=== PATIENT | female | born 1980 | race Caucasian/White ===

== ENCOUNTER 2016-09-07 15:47 | Emergency (ER) ==
[2016-09-07 16:07] VITALS: BP 106/65
== END 2016-09-07 16:30 | disposition left against medical advice (07) ==
LOC: P.ED 15:47
DX: N91.2 Amenorrhea, unspecified (principal)

== ENCOUNTER 2016-09-10 21:01 | Emergency (ER) ==
[2016-09-10 21:32] VITALS: BP 117/64
[2016-09-10] MEDS ORDERED: TYLENOL WITH CODEINE #3 PO ONE (22:09)
--- NOTE | 2016-09-10 22:09 | PROVIDER DOCUMENTATION ---
[facility]-ON LICENSE OF [facility] General <YuriyMark - Last Filed: 09/10/16 22:07> - General Source: patient - History of Present Illness-[facility] Location: reports: throat Quality of Pain: reports: aching Severity: reports: moderate Onset/Duration: reports: 1 week ago Timing: reports: still present Prearrival Treatment: Initiated no prearrival treatment Associated Symptoms: reports: sore throat. denies: cough, fever Similar Symptoms Previously?: Yes (hx of strep) Recently seen or treated by another doctor?: No <Enrrique Lopez - Last Filed: 09/10/16 22:13> - General Chief Complaint: Sore Throat Stated Complaint: SORE THROAT Time Seen by Provider: 09/10/16 22:11 Allergies/Adverse Reactions: Patient Allergies Allergy/AdvReac Type Severity Reaction Status Date / Time No Known Allergies Allergy Verified 09/10/16 21:28 Home Medications: Home Medication List Medication Instructions Recorded Confirmed Last Taken Type Hum Insulin NPH/Reg Insulin Hm 45 units BID 04/11/16 09/10/16 09/10/16 History [Novolin 70-30 100 Unit/ml Vial] Guaifenesin/Codeine [Robitussin-AC] 10 ml PO Q4H PRN PRN #6 oz 09/10/16 Unknown Rx - History of Present Illness-formerly [facility] Nature of Presenting Problem: 36 y/o F complains of a dry sore throat. Pt denies fever and cough. (Enrrique Lopez) Review of Systems - Adult - REVIEW OF SYSTEMS - ADULT Constitutional: denies: chills, fever Eyes: reports: no symptoms reported Ears, Nose, Mouth & Throat: reports: throat pain. denies: sinus problem, mouth/ dental pain, throat swelling Cardiovascular: reports: no symptoms reported Respiratory: denies: cough, shortness of breath, wheezing Gastrointestinal: reports: no symptoms reported Genitourinary: reports: no symptoms reported Musculoskeletal: reports: no symptoms reported Integumentary: reports: no symptoms reported Neurological: reports: no symptoms reported Psychiatric: reports: no symptoms reported Endocrine: reports: no symptoms reported Hematologic/Lymphatic: reports: no symptoms reported Allergic/Immunologic: reports: no symptoms reported All Other Systems: Reviewed and Negative <Enrrique Lopez - Last Filed: 09/10/16 22:13> Past History - Adult - PAST MEDICAL HISTORY-ADULT Major Childhood Illnesses: reports: denies history Cardiovascular: reports: denies history Respiratory: reports: denies history Gastrointestinal: reports: GERD Genitourinary: reports: denies history Musculoskeletal: reports: denies history Neurological: reports: Seizures/Epilepsy Endocrine/Immune: reports: Diabetes - PRIOR SURGERIES/PROCEDURES Surgical/Procedure History: reports: (x3) - IMMUNIZATION STATUS Childhood Immunizations: See Nurse Assessment Flu Vaccine: See Nurse Assessment - FAMILY HISTORY Family History: CAD over 55 yo <Mark Yan - Last Filed: 09/10/16 22:07> - PAST MEDICAL HISTORY-ADULT Review of Records: reports: Old Records Reviewed, Nursing Assessment Review, Medications Reviewed - SOCIAL HISTORY Smoking: cigarettes, less than 1 pack/day Living Situation: family <Enrrique Lopez - Last Filed: 09/10/16 22:13> Physical Exam- EENT - Physical Exam EENT Initial Vital Signs Reviewed: Yes General Appearance: appears well, alert, no apparent distress Eye Exam: bilateral eye: normal inspection, PERRL Ear Exam: bilateral ear: auricle normal, canal normal, TM normal Nasal Exam: normal inspection. negative: active bleeding Throat Exam: normal mouth inspection, pharynx normal Neck: non-tender, full range of motion, supple, normal inspection Respiratory: lungs clear, normal breath sounds Cardiovascular: normal peripheral pulses, regular rate, rhythm Abdominal Exam: normal bowel sounds, non tender, soft Back Exam: normal inspection, no CVA tenderness, no vertebral tenderness Extremity: normal range of motion, non-tender, normal gait, normal inspection Integumentary: normal color, normal turgor, warm/dry Neurologic: grossly normal, no motor/sensory deficits Psych/Mental Status: normal mood/affect, normal thought content, normal thought process, oriented x 3 <Enrrique Lopez - Last Filed: 09/10/16 22:13> Progress <Mark Yan - Last Filed: 09/10/16 22:07> <Enrrique Lopez - Last Filed: 09/10/16 22:13> - PLAN OF CARE/RESULTS Progress/Plan/Lab Results: Orders Category Date Time Status strep [DIRECT STREP PL] Stat Lab 09/10/16 21:35 Completed Acetaminophen with Codeine [Tylenol with Codeine #3] Med 09/10/16 22:09 Discontinued 1 each PO NOW ONE Vital Signs Temp Pulse Resp BP Pulse Ox 09/10/16 21:28 99.5 F 88 18 117/64 99 No Known Allergies Allergy (Verified 09/10/16 21:28) Hum Insulin NPH/Reg Insulin Hm [Novolin 70-30 100 Unit/ml Vial] 45 units BID Guaifenesin/Codeine [Robitussin-AC] 10 ml PO Q4H PRN PRN #6 oz 09/10/16 Laboratory 09/10/16 21:35 Group A Strep Rapid NEGATIVE (Enrrique Lopez) Departure - Departure Time of Disposition Order: 22:07 Certified Medical Emergency: Emergent <Mark Yan - Last Filed: 09/10/16 22:07> <Enrrique Lopez - Last Filed: 09/10/16 22:13> - Departure DIAGNOSIS: URI (upper respiratory infection) Qualifiers: URI type: unspecified viral URI Qualified Code(s): J06.9 - Acute upper respiratory infection, unspecified Disposition: HOME 01 Condition: Stable Additional Instructions: ED Follow Up Instructions: You have been treated by a care provider in the Emergency Department. These instructions are being provided to you so you can have an understanding of how to care for yourself upon discharge. Upon discharge from the Emergency Department, you are responsible for making arrangements for follow-up care by a physician of your choice. Take all prescribed medications as directed. Return to the Emergency Department immediately for any new or worsening symptoms. You may call the Physician Referral phone number at [phone] to obtain a list of Physicians who are taking new patients. Prescriptions: Guaifenesin/Codeine [Robitussin-AC] 10 ml PO Q4H PRN PRN #6 oz PRN Reason: Cough Referrals: Luis Alberto Cabral [Primary Care Provider] - Attestation - Scribe Verification/Attestation Scribe:: Enrrique Lopez Acting as Scribe for:: Mark Yan Scribe documention review:: This chart was documented by a scribe and accurately reflects the service the provider performed and the decisions made by the provider. <Enrrique Lopez - Last Filed: 09/10/16 22:13> Physician Attestation
== END 2016-09-10 22:24 | disposition home or self-care (01) ==
LOC: P.ED 21:01
DX: J06.9 Acute upper respiratory infection, unspecified (principal); J02.9 Acute pharyngitis, unspecified; E11.9 Type 2 diabetes mellitus without complications; R56.9 Unspecified convulsions; F17.210 Nicotine dependence, cigarettes, uncomplicated; Z82.49 Family history of ischemic heart disease and other diseases of the circulatory system; Z79.4 Long term (current) use of insulin
CPT/HCPCS: 87081; 87430; 99283

== ENCOUNTER 2016-12-17 17:00 | Inpatient (IN) ==
[2016-12-17] MEDS ORDERED: NS 1,000 ML IV ONE ×2 (18:20→19:36)
[2016-12-17] MEDS ORDERED: HUMALOG IV ONE (18:21)
[2016-12-17 18:28] LABS: MANUAL DIFF NEEDED? NO
[2016-12-17] MEDS ORDERED: NS 1,000 ML ONE (18:32)
[2016-12-17 18:41] LABS: BASO% 0.5 % (0.0-0.8); EOS# 0.15 X1000 (0.0-0.7); EOS% 1.9 % (0.0-10.0); HEMATOCRIT 41.6 % (37.0-47.0); IMM GRAN# 0.02 X1000 (0.0-0.04); IMM GRAN% 0.2 % (0.0-0.5); LYMPH# 2.24 X1000 (1.2-3.4); LYMPH% 27.7 % (20.5-51.1); MCH 31.5 PG (27-31); MCHC 33.7 g/dL (33-37); MCV 93.7 FL (81-99); MONO# 0.51 X1000 (0.11-0.59); MONO% 6.3 % (1.7-9.3); MPV 12.5 FL (7.4-10.4); NEUT% 63.4 % (42.2-75.2); PLT 258 X1000 (130-400); RBC 4.44 XMIL (4.2-5.4)
[2016-12-17] MEDS ORDERED: HUMALOG (PARKWAY) ONE (18:43)
[2016-12-17 19:10] LABS: AGAP 12; ALBUMIN 3.8 g/dL (3.5-5.0); ALKALINE PHOSPHATASE 133 U/L (32-104); BUN 10 mg/dL (8-22); CALCIUM 8.6 mg/dL (8.8-10.2); CHLORIDE 81 mmol/L (98-107); COSMO 288; GOT 11 U/L (10-30); GPT 11 U/L (10-36); POTASSIUM 4.6 mmol/L (3.5-5.1); TCO2 26 mmol/L (25-35); TOTAL PROTEIN 7.1 g/dL (6.3-8.3)
[2016-12-17 19:11] LABS: SODIUM 120 mmol/L (136-145)
[2016-12-17 19:18] LABS: ACETONE SERUM SMALL (NEGATIVE)
[2016-12-17] MEDS ORDERED: HUMULIN R (PARKWAY) SUBQ ONE (19:45)
--- NOTE | 2016-12-17 20:10 | PROVIDER DOCUMENTATION ---
This chart was entered by Negrita Lazaro Scribe, acting as scribe for Mark Yan MD. HPI-General Adult - General Chief Complaint: High Blood Sugar Stated Complaint: BLOOD SUGAR PROBLEMS Time Seen by Provider: 12/17/16 18:21 Source: patient Allergies/Adverse Reactions: Patient Allergies Allergy/AdvReac Type Severity Reaction Status Date / Time No Known Allergies Allergy Verified 12/17/16 17:19 Home Medications: Home Medication List Medication Instructions Recorded Confirmed Last Taken Type Insulin Regular, Human [Novolin R] 10 unit SQ DIRECTED 12/15/16 12/15/16 Unknown History Insulin Regular, Human [Novolin R] 45 unit SQ QAM 12/15/16 12/15/16 12/15/16 08: 00 History - History of Present Illness -Gen Adult Nature of Presenting Problems: 36 Y/O F presents to ED with High Blood Sugar. Pt states that she took her meds 40 units of Novalin R this morning and her sugar was 500, Pt states consistent High sugar. Has had diabetes for 20+ years and has hx of several episodes of DKA. Pt states she has a fruity vinegar taste in her mouth believes she's in DKA and states that her sugar was 700 but her monitor stops reading at 700. Location of Pain/Injury: reports: none Pain Radiation: reports: no radiation Quality of Pain: reports: none Severity: reports: moderate Onset/Duration: reports: this morning Timing: reports: still present Associated Symptoms: reports: denies symptoms Similar Symptoms Previously?: Yes Recently seen or treated by another doctor?: No - Diabetes Related Context Context: reports: high blood sugar, prior DKA hospitalization Review of Systems - Adult - REVIEW OF SYSTEMS - ADULT Constitutional: reports: weight gain. denies: chills, fever Eyes: reports: no symptoms reported Ears, Nose, Mouth & Throat: reports: no symptoms reported Cardiovascular: reports: no symptoms reported Respiratory: reports: no symptoms reported Gastrointestinal: reports: no symptoms reported Genitourinary: reports: no symptoms reported Musculoskeletal: reports: no symptoms reported Integumentary: reports: no symptoms reported Neurological: reports: no symptoms reported Psychiatric: reports: no symptoms reported Endocrine: reports: other (high glucose) Hematologic/Lymphatic: reports: no symptoms reported Allergic/Immunologic: reports: no symptoms reported All Other Systems: Reviewed and Negative Past History - Adult - PAST MEDICAL HISTORY-ADULT Review of Records: reports: Old Records Reviewed, Nursing Assessment Review, Medications Reviewed, Social history reviewed & non-contributory. Major Childhood Illnesses: reports: denies history Cardiovascular: reports: denies history Respiratory: reports: denies history Gastrointestinal: reports: GERD Obstetrical/Gynecological: reports: denies history Genitourinary: reports: denies history Musculoskeletal: reports: denies history Neurological: reports: Seizures/Epilepsy Endocrine/Immune: reports: Diabetes, thyroid disorder Other Conditions: reports: denies history - PRIOR SURGERIES/PROCEDURES Surgical/Procedure History: reports: (x3) - IMMUNIZATION STATUS Childhood Immunizations: See Nurse Assessment Flu Vaccine: See Nurse Assessment - FAMILY HISTORY Family History: CAD over 55 yo Physical Exam-General - PHYSICAL EXAM-ADULT Initial Vital Signs Reviewed: Yes - CONSTITUTIONAL General Appearance: appears well, alert, no apparent distress - EYES Eyes: PERRL/EOMI, pink conjunctivae - HEAD, EARS, NOSE, MOUTH & THROAT HENMT: normocephalic/atraumatic, moist mucous membranes, normal ENT inspection, TMs normal, pharynx normal - NECK Neck: non-tender, full range of motion, supple, normal inspection - RESPIRATORY Respiratory: chest non-tender, lungs clear, normal breath sounds - CARDIOVASCULAR Cardiovascular: normal peripheral pulses, regular rate, rhythm - GASTROINTESTINAL (ABDOMEN) Abdominal Exam: normal bowel sounds, non tender, soft - MUSCULOSKELETAL Back Exam: normal inspection Extremity: normal range of motion, non-tender, normal gait - SKIN Integumentary: normal color, normal turgor, warm/dry - NEUROLOGIC Neurologic: grossly normal - PSYCHIATRIC Psych/Mental Status: normal mood/affect, normal thought content, normal thought process, oriented x 3 Progress - PLAN OF CARE/RESULTS Progress/Plan/Lab Results: Vital Signs - 8 hr 12/17/16 17:20 Temperature 98.7 F Pulse Rate 84 Respiratory Rate 18 Blood Pressure 113/78 O2 Sat by Pulse Oximetry 98 Result Diagrams: 12/17/16 17:40 12/17/16 17:40 - CONSULTS/PCP/HOSPITALIST Notification #1 *Consult/PCP/Hospitalist*: Dr. Phillips Time Discussed: 19:20 Reason/Comments: Plan of Care Consult Disposition: Admit (Admit Accepted) Departure - Departure Date of Disposition Decision: 12/17/16 Time of Disposition Decision: 20:03 DIAGNOSIS: Hypoglycemia Disposition: ADMITTED INPATIENT 09 Certified Medical Emergency: Emergent Condition: Stable - Critical Care Note This patient required my direct & personal management of CC.: No This chart was documented by the indicated scribe, (Negrita Lazaro, Mariana) and accurately reflects the services I performed and decisions made by me, Mark Yan MD, as attested by the provider's signature.
[2016-12-17] MEDS ORDERED: LANTUS INSULIN (PARKWAY) SUBQ ONE (21:10)
[2016-12-17] MEDS: NS 1,000 ML IV SCH (23:01)
[2016-12-18] MEDS: NS 1,000 ML IV SCH (06:17)
[2016-12-18 06:36] LABS: BILIRUBIN URINE NEGATIVE (NEGATIVE); BLOOD URINE NEGATIVE (NEGATIVE); CLARITY CLEAR (CLEAR); COLOR YELLOW; LEUKOCYTES URINE NEGATIVE (NEGATIVE); NITRITE URINE NEGATIVE (NEGATIVE); PH URINE 6.5; PROTEIN URINE NEGATIVE (NEGATIVE); UROBILINOGEN URINE NORMAL
[2016-12-18 06:37] LABS: HEMOGLOBIN A1C 9.9 % (4.8-6.0)
[2016-12-18 06:38] LABS: MCH 30.9 PG (27-31); MCHC 34.3 g/dL (33-37); MCV 90.2 FL (81-99); MPV 11.7 FL (7.4-10.4); RBC 3.88 XMIL (4.2-5.4)
[2016-12-18 06:50] LABS: URINE CULTURE PL NEEDED? YES; URINE EPITHELIAL CELLS <10 /HPF (<10); URINE SOURCE CLEAN CATCH; URINE WBC <10 /HPF (<10)
[2016-12-18 06:54] LABS: AGAP 8; ALKALINE PHOSPHATASE 89 U/L (32-104); BUN 6 mg/dL (8-22); CALCIUM 7.8 mg/dL (8.8-10.2); CHLORIDE 100 mmol/L (98-107); COSMO 266; GOT 12 U/L (10-30); GPT 9 U/L (10-36); HDL 46 mg/dL (45-65); LDL 61 mg/dL; MAGNESIUM 1.7 mg/dL (1.5-2.7); POTASSIUM 2.9 mmol/L (3.5-5.1); SODIUM 135 mmol/L (136-145); TCO2 27 mmol/L (25-35); TOTAL PROTEIN 5.5 g/dL (6.3-8.3); TRIGLYCERIDES 132 mg/dL (35-135); VLDL 26 mg/dL
[2016-12-18 08:16] VITALS: BP 105/69
[2016-12-18] MEDS ORDERED: KLOR-CON PO ONE (08:31)
[2016-12-18] MEDS ORDERED: NOVOLOG MIX 70/30 (PARKWAY) SUBQ SCH (09:00)
--- NOTE | 2016-12-18 15:31 | HISTORY AND PHYSICAL ---
PRIMARY CARE PHYSICIAN: Dr. Luis Alberto Cabral. CHIEF COMPLAINT: Increased blood sugar, fruity taste in mouth, and monitor reading greater than 700. HISTORY OF PRESENTING ILLNESS: This is a 36-year-old, female, who has had several admissions for DKA. She presents to [facility] ER with complaints of an increased blood sugar. She states her monitor read 700 and that is as high as her monitor reads. She states she has a fruity taste in her mouth. When she arrived to the emergency room, her labs showed a blood sugar of 1042 with a sodium of 120, chloride 81. Her acetone level read small. In the emergency room, she was given a liter bolus of normal saline, 10 units of IV Humalog insulin and then placed on 150 mL an hour, and she was admitted to the medical unit for further evaluation and treatment. PAST MEDICAL HISTORY: Diabetes type 1 with poor control with multiple admissions for DKA. GERD and hypothyroidism. PAST SURGICAL HISTORY: section x3. FAMILY HISTORY: Diabetes and coronary artery disease. SOCIAL HISTORY: She is a 0-rbof-a-day smoker. Drinks alcoholic beverages. She denied any illicit drug use. ALLERGIES: She has no known drug allergies. HOME MEDICATIONS: She says she takes Novolin R 5 to 20 units subcutaneous as directed and 10 to 20 units subcutaneous at bedtime, and 40 units subcutaneous q.a.m. That is all being held at this time. LABORATORY DATA: White blood cell count of 8.08, hemoglobin 14, hematocrit 41.6, platelets 258,000. Sodium of 120, potassium 4.6, chloride 81. CO2 of 26. BUN of 10, creatinine 0.6, glucose 1042. Urinalysis was negative except for her 1+ ketones and 3+ glucose. Acetone level showed small. REVIEW OF SYSTEMS: She denied any blurred vision, dizziness, chest pain, coughing, shortness of breath. She states that she had a fruity taste in her mouth. Denied any abdominal pain, constipation, diarrhea, burning or hurting with urination. PHYSICAL EXAMINATION: VITAL SIGNS: On arrival, she had a temperature of 98.7 degrees, pulse 84, respirations 18, blood pressure 113/78. Saturating 98% on room air. GENERAL: This is a 36-year-old female lying in the bed. HEENT: Normocephalic and atraumatic. Pupils are equal, round, and reactive to light. Extraocular movements are intact. Oropharynx and nares are clear. NECK: Supple. LUNGS: Clear to auscultation bilaterally with equal lung expansion and chest wall movement. HEART: Regular rate and rhythm. No murmurs, rubs, or gallops. ABDOMEN: Soft, nontender, nondistended. Bowel sounds are present x4 quadrants. EXTREMITIES: No clubbing, cyanosis, or edema. NEUROLOGICAL: The cranial nerves 2-12 appear grossly intact. ASSESSMENT: 1. Diabetes type 1 with hyperglycemia with early diabetic ketoacidosis. 2. Hyponatremia. 3. Gastroesophageal reflux disease. 4. Hypothyroidism. PLAN: She was admitted to the medical unit, placed on pattern blood sugars with sliding scale insulin. We are going to obtain a urine culture and recheck CBC and BMP in the a.m. along with a C-peptide. Dictated by ELIANA Jose for Rick Matamoros MD cc: ELIANA Jose MD Joel Alonzo Powell, Jr, MD
--- NOTE | 2016-12-18 17:09 | DISCHARGE SUMMARY ---
ADMISSION DATE: 12/17/2016 DISCHARGE DATE: 12/18/2016 HISTORY: Please note this is an AMA discharge. The patient was seen by attending this morning. Her blood sugars had improved. She actually had a little bit of a hypoglycemic episode around 06:00 in the morning where she was 62, but was alert and awake. Her sodium had improved to 135. Potassium was a little low at 2.9 so we had ordered some potassium for that but the patient requested to leave AMA. She was alert, awake and oriented. We discussed with her about changing her insulin to a 70/30 to rely on that she could afford. It is unclear what caused her to want to leave AMA but she signed the papers. Her IV was taken out and she was discharged home. ADMISSION DIAGNOSES: 1. Diabetes type 1 with hyperglycemia early DKA. 2. Hyponatremia. 3. Gastroesophageal reflux disease. 4. Hypothyroidism. DISCHARGE DIAGNOSES: 1. Diabetes type 1 with hyperglycemia improved poor control. 2. Hyponatremia resolved. 3. Hypokalemia. 4. Gastroesophageal reflux disease. 5. Hypothyroidism. Dictated by ELIANA Jose for Rick Matamoros MD cc: ELIANA Jose MD Dr. Powell
== END 2016-12-18 08:55 | disposition left against medical advice (07) ==
LOC: P.ED 17:00 → P.MEDSURG 17:00 → OBSVTOIN 20:06
PROVIDERS: ATTEND Family Medicine

== ENCOUNTER 2017-04-12 04:27 | Inpatient (IN) ==
[~2017-04-12 04:27] MED LIST: HUMULIN R (PARKWAY) 100 UNITS in NS 100 ML IV SCH; HUMULIN R (PARKWAY) ONE; NS 2,000 ML ONE; ZOFRAN ONE
[2017-04-12] MEDS ORDERED: HUMULIN R IV ONE (04:44)
[2017-04-12] MEDS ORDERED: NS 1,000 ML IV ONE ×3 (04:44→08:00)
[2017-04-12 04:51] LABS: MANUAL DIFF NEEDED? NO
[2017-04-12 04:52] LABS: BASO% 0.1 % (0.0-0.8); EOS# 0.02 X1000 (0.0-0.7); EOS% 0.1 % (0.0-10.0); HEMATOCRIT 50.7 % (37.0-47.0); HEMOGLOBIN 16.6 g/dL (12.0-16.0); IMM GRAN# 0.11 X1000 (0.0-0.04); IMM GRAN% 0.6 % (0.0-0.5); LYMPH# 2.63 X1000 (1.2-3.4); LYMPH% 14.1 % (20.5-51.1); MCH 31.1 PG (27-31); MCHC 32.7 g/dL (33-37); MCV 95.1 FL (81-99); MONO# 0.79 X1000 (0.11-0.59); MONO% 4.2 % (1.7-9.3); MPV 11.8 FL (7.4-10.4); NEUT% 80.9 % (42.2-75.2); PLT 356 X1000 (130-400); RBC 5.33 XMIL (4.2-5.4)
--- NOTE | 2017-04-12 05:13 | PROVIDER DOCUMENTATION ---
HPI-General Adult - General Chief Complaint: High Blood Sugar Stated Complaint: elevated blood sugar Time Seen by Provider: 04/12/17 04:30 Source: patient, family, EMS Allergies/Adverse Reactions: Patient Allergies Allergy/AdvReac Type Severity Reaction Status Date / Time No Known Allergies Allergy Verified 04/11/17 07:11 Home Medications: Home Medication List Medication Instructions Recorded Confirmed Last Taken Type Insulin Regular, Human [Novolin R] 5 - 20 unit SQ DIRECTED 12/15/16 04/11/17 01/03/17 History Insulin Glargine,Hum.rec.anlog 10 unit SQ DAILY 04/11/17 04/11/17 Unknown History [Tanesha Garcia] - History of Present Illness -Gen Adult Nature of Presenting Problems: pt has not been checking her blood sugars as she ran out of tstrips so she has just been giving herself 10 units of insulin prior to meals. She started to feel sick like when she has DKA, which she has had multiple times and presented to [facility] where she was found to be in DKA and was admitted. She was in their ICU and left AMA!. Asked to why she replied she thought she was better. I asked pt now if she intends to stay and she agrees. Review of Systems - Adult - REVIEW OF SYSTEMS - ADULT Constitutional: denies: chills, fever Eyes: denies: discharge Ears, Nose, Mouth & Throat: reports: other (dry mouth). denies: ear pain, sinus problem, throat pain Cardiovascular: denies: chest pain Respiratory: denies: cough, shortness of breath, wheezing Gastrointestinal: reports: nausea, vomiting. denies: abdominal pain, diarrhea Genitourinary: denies: dysuria, flank pain Musculoskeletal: denies: back pain Integumentary: denies: rash Neurological: denies: headache/migraines, numbness, paresthesia Psychiatric: reports: no symptoms reported Endocrine: reports: see HPI Hematologic/Lymphatic: reports: no symptoms reported Allergic/Immunologic: reports: no symptoms reported All Other Systems: Reviewed and Negative Past History - Adult - PAST MEDICAL HISTORY-ADULT Review of Records: reports: Old Records Reviewed, Nursing Assessment Review, Medications Reviewed, Social history reviewed & non-contributory. Major Childhood Illnesses: reports: denies history Cardiovascular: reports: denies history Respiratory: reports: denies history Gastrointestinal: reports: GERD Obstetrical/Gynecological: reports: denies history Genitourinary: reports: denies history Musculoskeletal: reports: denies history Neurological: reports: Seizures/Epilepsy Endocrine/Immune: reports: Diabetes, thyroid disorder Other Conditions: reports: denies history - PRIOR SURGERIES/PROCEDURES Surgical/Procedure History: reports: (x3) - IMMUNIZATION STATUS Childhood Immunizations: See Nurse Assessment Flu Vaccine: See Nurse Assessment - FAMILY HISTORY Family History: CAD over 55 yo Physical Exam-General - PHYSICAL EXAM-ADULT Initial Vital Signs Reviewed: Yes - CONSTITUTIONAL General Appearance: alert, moderate distress - EYES Eyes: pink conjunctivae. negative: scleral icterus - HEAD, EARS, NOSE, MOUTH & THROAT HENMT: normocephalic/atraumatic, pharynx normal, other (mouth dry) - NECK Neck: non-tender, full range of motion, supple, normal inspection - RESPIRATORY Respiratory: chest non-tender, lungs clear, normal breath sounds, no pleuratic chest pain, no respiratory distress, other (markedly increased rate) - CARDIOVASCULAR Cardiovascular: no edema, no murmur, tachycardia - GASTROINTESTINAL (ABDOMEN) Abdominal Exam: normal bowel sounds, non tender, soft, no organomegaly, no pulsatile mass - MUSCULOSKELETAL Back Exam: normal inspection, no CVA tenderness, no vertebral tenderness Extremity: non-tender, normal inspection, no pedal edema, no calf tenderness - SKIN Integumentary: warm/dry, pallor - NEUROLOGIC Neurologic: grossly normal, no motor/sensory deficits - PSYCHIATRIC Psych/Mental Status: normal mood/affect, normal thought content, normal thought process, oriented x 3 Progress - PLAN OF CARE/RESULTS Progress/Plan/Lab Results: Vital Signs - 8 hr 04/12/17 04:20 Temperature 97.3 F L Pulse Rate 110 H Respiratory Rate 22 Blood Pressure 138/74 O2 Sat by Pulse Oximetry 100 Laboratory Results - last 24 hr 04/12/17 04/12/17 04:30 04:30 WBC 18.69 H RBC 5.33 Hgb 16.6 H Hct 50.7 H MCV 95.1 MCH 31.1 H MCHC 32.7 L RDW Std Deviation 13.1 Plt Count 356 MPV 11.8 H Immature Gran % (Auto) 0.6 H Neut % (Auto) 80.9 H Lymph % (Auto) 14.1 L [place] % (Auto) 4.2 Eos % (Auto) 0.1 Baso % (Auto) 0.1 Immature Gran # (Auto) 0.11 H Neut # (Auto) 15.12 H Lymph # (Auto) 2.63 [place] # (Auto) 0.79 H Eos # (Auto) 0.02 Baso # (Auto) 0.02 Acetone Level MODERATE A Orders Category Date Time Status ABG [RESP] Routine Lab 04/12/17 04:31 Ordered ACETONE SERUM [CHEM] Stat Lab 04/12/17 04:30 Completed CBC WITH ELECTRONIC DIFF [HEME] Stat Lab 04/12/17 04:30 Completed CMP [COMPREHENSIVE METABOLIC PANEL] [CHEM] Stat Lab 04/12/17 04:30 Received 0.9% Sodium Chloride Inj [Ns] 1,000 ml Med 04/12/17 04:44 Active IV 999 mls/hr Insulin Human Regular [Humulin R] Med 04/12/17 04:44 Discontinued 10 unit IV NOW ONE Result Diagrams: 04/12/17 04:30 04/12/17 04:30 Departure - Departure Date of Disposition Decision: 04/12/17 Time of Disposition Decision: 05:36 DIAGNOSIS: DKA (diabetic ketoacidoses) Qualifiers: Diabetes mellitus type: type 1 Diabetes mellitus complication detail: without coma Qualified Code(s): E10.10 - Type 1 diabetes mellitus with ketoacidosis without coma Disposition: ADMITTED INPATIENT 09 Certified Medical Emergency: Emergent Condition: Fair Referrals and Follow-Ups: None,PCP [Primary Care Provider] - - Critical Care Note This patient required my direct & personal management of CC.: Yes Total Time (mins): 60 Critical Care Statement: This patient required my direct personal management to treat or rule out processes, the absence of which, could potentiallly result in sudden, clinically significant life or limb threatening deterioration. Attestation - Physician/ ASHISH Attestation Patient care was provided by Advanced Practice Provider:: No The physician spent face to face time with patient:: Yes Advanced Practice Provider documentation review:: Supervising physician onsite and consulted in the evaluation and care of this patient. The physician did have a face to face encounter with the patient.
[2017-04-12] MEDS ORDERED: ZOFRAN IV ONE (05:14)
[2017-04-12 05:15] LABS: ALLEN TEST YES; BE -31.4 mmoll (-3.0-3.0); BLOOD TYPE ARTERIAL; DRAW SITE R RADIAL; METHB 1.3 % (0.0-1.5); O2(CT) 21.2 mL/dL (15.0-23.0); PO2(98.6) 144 mmHg (60-100); SAMPLE BLOOD; SAO2 99.1 % (95.0-100.0); THB 15.4 g/dL (11.5-17.4)
[2017-04-12 05:17] LABS: MODALITY ROOM AIR; PCO2(98.6) 10 mmHg (35-45); pH(98.6) 6.83 (7.35-7.45)
[2017-04-12] MEDS ORDERED: HUMULIN R 100 UNIT in NS 100 ML IV SCH ×2 (05:30→06:00)
[2017-04-12 05:33] LABS: AGAP 30; ALBUMIN 4.5 g/dL (3.5-5.0); ALKALINE PHOSPHATASE 134 U/L (32-104); BUN 7 mg/dL (8-22); CALCIUM 8.3 mg/dL (8.8-10.2); CHLORIDE 100 mmol/L (98-107); COSMO 285; GOT 13 U/L (10-30); GPT 11 U/L (10-36); POTASSIUM 5.5 mmol/L (3.5-5.1); SODIUM 135 mmol/L (136-145); TCO2 5 mmol/L (25-35); TOTAL BILIRUBIN 0.22 mg/dL (0.20-1.00); TOTAL PROTEIN 8.1 g/dL (6.3-8.3)
[2017-04-12] MEDS ORDERED: NS 1,000 ML ONE (05:39)
[2017-04-12] MEDS ORDERED: KLOR-CON PO PRN ×2 (06:42)
[2017-04-12] MEDS ORDERED: POTASSIUM CHLORIDE 20 MEQ/SWI 20 MEQ/100 ML IVPB IV PRN (06:42)
[2017-04-12] MEDS ORDERED: D50W SYRINGE IV PRN (06:42)
[2017-04-12] MEDS ORDERED: POTASSIUM CHLORIDE 40 MEQ/SWI 40 MEQ/100 ML IVPB IV PRN (06:42)
[2017-04-12] MEDS ORDERED: SODIUM BICARBONATE 8.4% 100 MEQ in D5W 500 ML IV PRN (06:42)
[2017-04-12] MEDS ORDERED: MAGNESIUM SULFATE 2 GM/S.W.I. 2 GM/50 ML IVPB IV PRN (06:42)
[2017-04-12] MEDS ORDERED: SODIUM PHOSPHATE 30 MMOL in D5W 250 ML IV PRN (06:42)
[2017-04-12] MEDS ORDERED: SODIUM BICARBONATE 8.4% 50 MEQ in D5W 250 ML IV PRN (06:42)
[2017-04-12] MEDS ORDERED: ZOFRAN IV PRN ×2 (06:51→06:53)
[2017-04-12] MEDS ORDERED: TYLENOL PO PRN (06:51)
[2017-04-12] MEDS ORDERED: TYLENOL PR PRN (06:51)
--- NOTE | 2017-04-12 07:05 | HISTORY AND PHYSICAL ---
CHIEF COMPLAINT: Hyperglycemia, nausea, and vomiting. HISTORY OF PRESENTING ILLNESS: A 37-year-old female with a history of diabetes mellitus type 1 who apparently was admitted at [facility] ICU for treatment for DKA. She stated that, however, she felt better and she left against medical advice. She presented to the emergency department at [facility] with complaints of nausea and vomiting. She was somewhat altered. She was diaphoretic. She was evaluated in the ER. 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 Due to her presenting symptoms, she would need ICU admission. I discussed with patient, however, she was somewhat altered, that they need to remain in hospital. Family is agreeable to keep her here. At the time of my examination, as discussed, she was somewhat altered and most of the history is obtained from family members. PAST MEDICAL HISTORY: Include diabetes mellitus type 1. PAST SURGICAL HISTORY: None. ALLERGIES: No known drug allergies. CURRENT MEDICATIONS: As listed in the medication reconciliation sheet. SOCIAL HISTORY: Ten pack years history of smoking. Denies any history of alcohol or illicit drug use. FAMILY HISTORY: No history of coronary artery disease. REVIEW OF SYSTEMS: Twelve point review of systems is as listed in the HPI. Other systems negative. PHYSICAL EXAMINATION: GENERAL: The patient is resting more comfortably now. VITAL SIGNS: Temperature 97.3 degrees, pulse 110, respirations 22, blood pressure 138/74. HEENT: Atraumatic, normocephalic. Extraocular movements intact. PERRLA. NECK: No masses. CHEST: Clear to auscultation. CARDIOVASCULAR: Tachycardic. ABDOMEN: Soft. Positive bowel sounds. EXTREMITIES: No edema. NEUROLOGIC: She is awake, alert, oriented x2. : No bladder distention. SKIN: Warm. LABORATORIES AND STUDIES: The pH is 6.83, pCO2 is 10. WBCs 18.69, hemoglobin 16.6, hematocrit 50.7, platelets 356,000. Sodium 135, potassium 5.5, chloride 100, CO2 is 5, BUN is 7, creatinine 0.9, glucose is 413. Acetone is moderate. ASSESSMENT: A 37-year-old female with a history of diabetes mellitus type 1 who apparently was admitted at [facility] intensive care unit for treatment for diabetic ketoacidosis. She, for some unknown reasons, left the hospital against medical advice. She returns to [facility] emergency department with complaints of nausea, vomiting, and she was moderately diaphoretic. She was evaluated. She was found to be in diabetic ketoacidosis and subsequently she will need admission for further management. Diabetic ketoacidosis. PLAN: 1. We will admit patient to ICU. 2. We will start patient on insulin drip for DKA protocol. 3. Continue to monitor electrolytes and neurological status. 4. Continue with IV fluids. 5. Put patient on DVT prophylaxis with SCDs. 6. We will continue to follow and reassess. Patient's condition is guarded. cc: Duane Meredith MD
[2017-04-12 07:26] LABS: MAGNESIUM 2.1 mg/dL (1.5-2.7)
[2017-04-12 08:17] LABS: ALLEN TEST YES; BE -23.2 mmoll (-3.0-3.0); BLOOD TYPE ARTERIAL; DRAW SITE R RADIAL; METHB 1.1 % (0.0-1.5); O2(CT) 18.9 mL/dL (15.0-23.0); PO2(98.6) 120 mmHg (60-100); SAMPLE BLOOD; SAO2 99.9 % (95.0-100.0); THB 13.7 g/dL (11.5-17.4)
[2017-04-12 08:18] LABS: MODALITY ROOM AIR; PCO2(98.6) 15 mmHg (35-45); pH(98.6) 7.09 (7.35-7.45)
[2017-04-12] MEDS: D5 NS 1,000 ML IV SCH ×2 (09:11→16:19)
[2017-04-12 09:31] LABS: AGAP 21; BUN 6 mg/dL (8-22); CALCIUM 7.4 mg/dL (8.8-10.2); CHLORIDE 112 mmol/L (98-107); COSMO 283; MAGNESIUM 1.6 mg/dL (1.5-2.7); POTASSIUM 4.7 mmol/L (3.5-5.1); SODIUM 140 mmol/L (136-145); TCO2 7 mmol/L (25-35)
--- NOTE | 2017-04-12 10:01 | PROGRESS NOTE ---
DATE: 04/12/2017 SUBJECTIVE: Ms. Del Rio was admitted yesterday with apparently rebound of diabetic ketoacidosis. This is a 37-year-old. Her story is that she presented with hypoglycemia, nausea, and vomiting. A 37-year-old with a history of diabetes mellitus type 1. Apparently admitted to [facility] for treatment for DKA. Stated that however she felt better and left against medical advice yesterday and then came to the emergency room at [facility] with complaints of nausea and vomiting, somewhat altered. She was diaphoretic. Found to be in DKA with a pH of 6.83, moderate acetone syndrome on urinalysis so put her into the ICU and started her on insulin and fluids. She states she feels a little better. The nausea has diminished. No abdominal pain. Her mouth feels dry. Requesting liquids. PHYSICAL EXAMINATION: Vital Signs: Temperature 97.3 degrees, pulse 115, respirations 26, blood pressure 147/102. HEENT: Pupils were equal and round. Lungs: Clear in all lung carrera. Cardiovascular Examination: Regular rhythm and rate without murmur or S3. Abdomen: Soft. Skin: Warm and dry. LABORATORY DATA: White count 18,690, hematocrit 50, platelet count 356,000. Sodium 135, potassium 5.5, chloride 100, BUN 7, creatinine 0.9, blood sugar 413 and 222. Blood gases on presentation, pH was 6.83, pCO2 was 10, PO2 was 144. This morning, pH 7.09, CO2 was 15, PO2 was 120. Lab this morning, white count 18,690, hematocrit 50, platelet count 356,000. Electrolytes: Sodium 135, potassium 5.5, chloride 100, bicarb 5, BUN 7, creatinine 0.9. ASSESSMENT AND PLAN: 1. Diabetic ketoacidosis. Finish her bolus of normal saline. Then we will put her on D5 normal saline. Continue insulin drip. Acidosis is improving. We will put her on clear liquids. Advance her diet as we are able to. 2. Reviewed orders. Continue present protocol. Note that the electrolytes looked good. Potassium, I expect will start dropping. We will follow. Magnesium was 2.1. cc: Truman Slater MD
[2017-04-12 12:41] LABS: ALLEN TEST YES; BE -12.8 mmoll (-3.0-3.0); BLOOD TYPE ARTERIAL; DRAW SITE L RADIAL; METHB 0.9 % (0.0-1.5); O2(CT) 17.1 mL/dL (15.0-23.0); PCO2(98.6) 23 mmHg (35-45); PO2(98.6) 111 mmHg (60-100); SAMPLE BLOOD; THB 12.4 g/dL (11.5-17.4); pH(98.6) 7.31 (7.35-7.45)
[2017-04-12 12:42] LABS: MODALITY ROOM AIR
[2017-04-12 14:28] LABS: AGAP 14; BUN 4 mg/dL (8-22); CHLORIDE 109 mmol/L (98-107); COSMO 277; MAGNESIUM 2.3 mg/dL (1.5-2.7); POTASSIUM 3.3 mmol/L (3.5-5.1); SODIUM 137 mmol/L (136-145); TCO2 14 mmol/L (25-35)
[2017-04-12 14:31] LABS: CALCIUM 6.9 mg/dL (8.8-10.2)
[2017-04-12] MEDS ORDERED: CALCIUM GLUCONATE 2 GM in NS 100 ML IV ONE (15:00)
[2017-04-12] MEDS: NEUTRA-PHOS PO SCH ×2 (16:19→21:27)
[2017-04-12 17:38] LABS: AGAP 11; BUN 4 mg/dL (8-22); CALCIUM 7.3 mg/dL (8.8-10.2); CHLORIDE 111 mmol/L (98-107); COSMO 275; POTASSIUM 3.5 mmol/L (3.5-5.1); SODIUM 136 mmol/L (136-145); TCO2 14 mmol/L (25-35)
[2017-04-12 17:56] LABS: ALLEN TEST YES; BE -11.1 mmoll (-3.0-3.0); BLOOD TYPE ARTERIAL; DRAW SITE R RADIAL; METHB 1.2 % (0.0-1.5); PCO2(98.6) 26 mmHg (35-45); PO2(98.6) 108 mmHg (60-100); SAMPLE BLOOD; SAO2 99.5 % (95.0-100.0); THB 12.4 g/dL (11.5-17.4); pH(98.6) 7.32 (7.35-7.45)
[2017-04-12 17:57] LABS: MODALITY ROOM AIR
[2017-04-12 23:34] LABS: AGAP 10; BUN 4 mg/dL (8-22); CALCIUM 7.2 mg/dL (8.8-10.2); CHLORIDE 111 mmol/L (98-107); COSMO 279; MAGNESIUM 1.9 mg/dL (1.5-2.7); POTASSIUM 3.6 mmol/L (3.5-5.1); SODIUM 138 mmol/L (136-145); TCO2 17 mmol/L (25-35)
[2017-04-13] MEDS ORDERED: KLOR-CON PO ONE (00:13)
[2017-04-13] MEDS: NS 1,000 ML IV SCH ×2 (00:38→08:34)
[2017-04-13] MEDS: HUMULIN R SUBQ SCH ×3 (00:45→08:34)
[2017-04-13] MEDS: D5 NS 1,000 ML IV SCH (00:46)
[2017-04-13 04:31] LABS: ALLEN TEST YES; BE -10.7 mmoll (-3.0-3.0); BLOOD TYPE ARTERIAL; DRAW SITE R RADIAL; METHB 1.1 % (0.0-1.5); O2(CT) 17.5 mL/dL (15.0-23.0); PCO2(98.6) 27 mmHg (35-45); PO2(98.6) 135 mmHg (60-100); SAMPLE BLOOD; SAO2 99.1 % (95.0-100.0); THB 12.7 g/dL (11.5-17.4); pH(98.6) 7.32 (7.35-7.45)
[2017-04-13 04:32] LABS: MODALITY ROOM AIR
[2017-04-13 07:52] LABS: MANUAL DIFF NEEDED? NO
[2017-04-13 08:02] LABS: BASO% 0.2 % (0.0-0.8); EOS# 0.06 X1000 (0.0-0.7); EOS% 0.9 % (0.0-10.0); HEMATOCRIT 32.4 % (37.0-47.0); HEMOGLOBIN 11.3 g/dL (12.0-16.0); LYMPH# 2.91 X1000 (1.2-3.4); LYMPH% 45.5 % (20.5-51.1); MCH 31.7 PG (27-31); MCHC 34.9 g/dL (33-37); MONO# 0.49 X1000 (0.11-0.59); MONO% 7.7 % (1.7-9.3); MPV 11.4 FL (7.4-10.4); NEUT% 45.7 % (42.2-75.2); PLT 178 X1000 (130-400); RBC 3.56 XMIL (4.2-5.4)
[2017-04-13 08:15] LABS: AGAP 9; BUN 3 mg/dL (8-22); CALCIUM 7.3 mg/dL (8.8-10.2); CHLORIDE 115 mmol/L (98-107); COSMO 279; POTASSIUM 3.7 mmol/L (3.5-5.1); SODIUM 140 mmol/L (136-145); TCO2 16 mmol/L (25-35)
[2017-04-13 08:26] VITALS: BP 113/76
[2017-04-13] MEDS: NEUTRA-PHOS PO SCH (08:34)
--- NOTE | 2017-04-14 04:32 | DISCHARGE SUMMARY ---
ADMISSION DATE: 04/12/2017 DISCHARGE DATE: 04/13/2017 DISCHARGE DIAGNOSES: 1. Diabetic ketoacidosis, under treatment. 2. Poorly controlled diabetes mellitus type 1. HOSPITAL COURSE: This is a 37-year-old, female with a history of diabetes mellitus type 1 who was admitted at [facility] for treatment of DKA but apparently, she stated that she was feeling fine so she left the hospital against medical advice. She presented again to the emergency department here in [facility] complaining with nausea and vomiting. The ER evaluation revealed again DKA with a pH of 7.83, with moderate acetone levels, so she was admitted again to the intensive care unit. Started on an insulin drip. We were checking BMPs and also ABGs every 4 hours. She was feeling better yesterday but unfortunately today, she was complaining with the nursing staff about the diet that we were providing to her. I think she does not understand her disease. She was explained the need for being compliant with medication. It was explained to her the need for her to be on a low sugar diet but she is very upset that she is not being given any sweet products. She is very adamant and she decided at this time again to leave the hospital against medical advice. I can anticipate that this patient is going to be back to the hospital because she needs still to be on insulin and watching her sugars for 1 day or 2. I recommended her to stay here but she is very upset and she is leaving. cc: Shaka Campoverde MD
== END 2017-04-13 10:25 | disposition left against medical advice (07) ==
LOC: ED 04:27 → ICU 06:46 → SUATTDRO 06:46 → ICU 07:01
PROVIDERS: ATTEND Internal Medicine

== ENCOUNTER 2018-12-06 11:50 | Inpatient (IN) ==
[2018-12-06] MEDS ORDERED: NS 1,000 ML IV ONE ×3 (11:58→14:25)
[2018-12-06 12:12] LABS: BASO# 0.04 X1000 (0.0-0.2); BASO% 0.5 % (0.0-0.8); EOS# 0.07 X1000 (0.0-0.7); EOS% 0.8 % (0.0-10.0); HEMATOCRIT 46.2 % (37.0-47.0); HEMOGLOBIN 15.9 g/dL (12.0-16.0); IMM GRAN# 0.02 X1000 (0.0-0.04); IMM GRAN% 0.2 % (0.0-0.5); LYMPH# 2.88 X1000 (1.2-3.4); MCH 31.3 PG (27-31); MCHC 34.4 g/dL (33-37); MCV 90.9 FL (81-99); MONO% 5.9 % (1.7-9.3); MPV 11.1 FL (7.4-10.4); NEUT# 4.97 X1000 (1.4-6.5); NEUT% 58.6 % (42.2-75.2); PLT 299 X1000 (130-400); RBC 5.08 XMIL (4.2-5.4); RDW 12.9 % (11.5-14.5); WBC 8.48 X1000 (4.8-10.8)
[2018-12-06 12:27] LABS: ESTIMATED GFR > 60
[2018-12-06 12:29] LABS: INR 0.91; PROTIME 12.7 Seconds (11.0-16.0)
[2018-12-06 12:30] LABS: PTT 22.6 Seconds (22.3-41.8)
[2018-12-06 12:31] LABS: AGAP 23; ALBUMIN 3.9 g/dL (3.5-5.0); ALKALINE PHOSPHATASE 105 U/L (32-104); BUN 11 mg/dL (8-22); CALCIUM 8.9 mg/dL (8.8-10.2); CHLORIDE 91 mmol/L (98-107); COSMO 282; CREATININE 0.6 mg/dL (0.5-0.9); GOT 9 U/L (10-30); GPT 9 U/L (10-36); POTASSIUM 4.2 mmol/L (3.5-5.1); SODIUM 132 mmol/L (136-145); TCO2 18 mmol/L (25-35); TOTAL PROTEIN 7.5 g/dL (6.3-8.3)
[2018-12-06 12:32] LABS: GLUCOSE 428 mg/dL (70-104)
[2018-12-06 12:33] LABS: BE -18.3 mmoll (-2.0-2.0); BLOOD TYPE VENOUS; HCO3-(ACT) 9.8 mmoll (22-27); PCO2(98.6) 55 mmHg (40-60); PO2(98.6) 45 mmHg (30-55); SAMPLE BLOOD; SAO2 74.8 % (40.0-85.0)
[2018-12-06] MEDS ORDERED: HUMULIN R IV ONE (12:35)
--- NOTE | 2018-12-06 12:43 | PROVIDER DOCUMENTATION ---
This chart was entered by Lori Thornton Scribe, acting as scribe for Juan Candelario MD. HPI-General Adult - General Chief Complaint: High Blood Sugar Stated Complaint: BS HIGH Time Seen by Provider: 12/06/18 12:01 Source: patient Allergies/Adverse Reactions: Patient Allergies Allergy/AdvReac Type Severity Reaction Status Date / Time No Known Allergies Allergy Verified 12/06/18 11:57 Home Medications: Home Medication List Medication Instructions Recorded Confirmed Last Taken Type Insulin Aspart [Novolog] 30 unit SQ DIRECTED 03/31/18 07/22/18 05/31/18 History Insulin Detemir [Levemir] 15 units SQ QHS 03/31/18 07/22/18 06/18/18 History 15 Fluticasone 50 Mcg Nasal [place] 1 spray YOAV DAILY #1 bottle 07/22/18 Unknown Rx [Flonase] Ibuprofen/Pseudoephedrine HCl 1 - 2 tab PO Q8HR PRN #20 tab 07/22/18 Unknown Rx [Advil Cold & Sinus Caplet] - History of Present Illness -Gen Adult Nature of Presenting Problems: 38yof presents to ED cc high blood sugar, dry mouth, increased thirst & increased urine output, for past 3 days. Pt reports her home glucose meter couldn't even read the number. Pt has hx of DKA. Blood sugar in ED is over 400. Pt denies V/D. Onset/Duration: reports: 3 days ago Timing: reports: still present Context/Activities at Onset: reports: none Modifying Factors: improves with: nothing Associated Symptoms: reports: chest pain (mild and only with movement), nausea (mild). denies: cough, diarrhea, fever/chills, vomiting Similar Symptoms Previously?: Yes - Diabetes Related Context Context: reports: high blood sugar, prior DKA hospitalization Review of Systems - Adult - REVIEW OF SYSTEMS - ADULT Constitutional: reports: see HPI. denies: chills, fever, fatique Eyes: reports: no symptoms reported Ears, Nose, Mouth & Throat: reports: see HPI, other (dry mouth). denies: sinus problem, throat pain Cardiovascular: reports: no symptoms reported Respiratory: reports: no symptoms reported Gastrointestinal: reports: see HPI, abdominal pain (mild periumbilical tenderness), nausea (mild). denies: diarrhea, vomiting Genitourinary: reports: no symptoms reported Musculoskeletal: reports: no symptoms reported Integumentary: reports: no symptoms reported Neurological: reports: no symptoms reported Psychiatric: reports: no symptoms reported Endocrine: reports: see HPI, increased thirst, polyuria Hematologic/Lymphatic: reports: no symptoms reported Allergic/Immunologic: reports: no symptoms reported All Other Systems: Reviewed and Negative Past History - Adult - PAST MEDICAL HISTORY-ADULT Review of Records: reports: Nursing Assessment Review, Medications Reviewed, Social history reviewed & non-contributory. Major Childhood Illnesses: reports: denies history Cardiovascular: reports: denies history, arrhythmia Respiratory: reports: denies history Gastrointestinal: reports: GERD Obstetrical/Gynecological: reports: denies history Genitourinary: reports: denies history Musculoskeletal: reports: denies history Neurological: reports: Seizures/Epilepsy, TIA Endocrine/Immune: reports: Diabetes, thyroid disorder Other Conditions: reports: denies history - PRIOR SURGERIES/PROCEDURES Surgical/Procedure History: reports: (x3), other (lasik; LSG) - IMMUNIZATION STATUS Childhood Immunizations: See Nurse Assessment Flu Vaccine: See Nurse Assessment - FAMILY HISTORY Family History: CAD over 55 yo - SOCIAL HISTORY Smoking: cigarettes Physical Exam-General - PHYSICAL EXAM-ADULT Initial Vital Signs Reviewed: Yes - CONSTITUTIONAL General Appearance: appears well, alert. negative: anxious, combative - EYES Eyes: PERRL/EOMI, pink conjunctivae. negative: photophobia - HEAD, EARS, NOSE, MOUTH & THROAT HENMT: negative: moist mucous membranes (mild dryness), angioedema - RESPIRATORY Respiratory: chest non-tender, lungs clear, normal breath sounds, no pleuratic chest pain, no respiratory distress, no accessory muscle use. negative: c rackles, rales, rhonchi - CARDIOVASCULAR Cardiovascular: normal peripheral pulses, regular rate, rhythm, no edema, no gallop, no JVD, no murmur. negative: bradycardia, tachycardia - GASTROINTESTINAL (ABDOMEN) Abdominal Exam: normal bowel sounds, soft, tenderness (mild periumbilical tenderness). negative: non tender - SKIN Integumentary: normal color, warm/dry. negative: diaphoresis, jaundice - PSYCHIATRIC Psych/Mental Status: normal mood/affect, normal thought content, normal thought process, oriented x 3. negative: anxious Progress - PLAN OF CARE/RESULTS Progress/Plan/Lab Results: Vital Signs - 8 hr 12/06/18 11:54 Temperature 98 F Pulse Rate 96 H Respiratory Rate 18 Blood Pressure 88/56 O2 Sat by Pulse Oximetry 98 Laboratory Results - last 24 hr 12/06/18 12/06/18 11:56 12:05 WBC 8.48 RBC 5.08 Hgb 15.9 Hct 46.2 MCV 90.9 MCH 31.3 H MCHC 34.4 RDW Std Deviation 12.9 Plt Count 299 MPV 11.1 H Immature Gran % (Auto) 0.2 Neut % (Auto) 58.6 Lymph % (Auto) 34.0 Hamilton % (Auto) 5.9 Eos % (Auto) 0.8 Baso % (Auto) 0.5 Immature Gran # (Auto) 0.02 Neut # (Auto) 4.97 Lymph # (Auto) 2.88 Hamilton # (Auto) 0.50 Eos # (Auto) 0.07 Baso # (Auto) 0.04 POC Glucose 425 H D Orders Category Date Time Status ACETONE SERUM [CHEM] Stat Lab 12/06/18 12:05 Received CBC WITH ELECTRONIC DIFF [HEME] Stat Lab 12/06/18 12:05 Completed COMPREHENSIVE METABOLIC PANEL [CHEM] Stat Lab 12/06/18 12:05 Received PROTIME WITH INR [COAG] Stat Lab 12/06/18 12:05 Received PTT [COAG] Stat Lab 12/06/18 12:[address] G[address] [RESP] Routine Lab 12/06/18 11:58 Ordered 0.9% Sodium Chloride Inj [Ns] 1,000 ml Med 12/06/18 11:58 Active IV 999 mls/hr 0.9% Sodium Chloride Inj [Ns] 1,000 ml Med 12/06/18 12:13 Active IV 999 mls/hr Result Diagrams: 12/06/18 12:05 12/06/18 12:05 - CONSULTS/PCP/HOSPITALIST Notification #1 *Consult/PCP/Hospitalist*: [facility] Time Discussed: 12:42 Consult Disposition: Admit Departure - Departure Date of Disposition Decision: 12/06/18 Time of Disposition Decision: 12:43 DIAGNOSIS: DKA (diabetic ketoacidoses) Disposition: ADMITTED INPATIENT 09 Certified Medical Emergency: Emergent Condition: Stable Referrals and Follow-Ups: Luis Alberto Cbaral Jr, MD [Primary Care Provider] - - Critical Care Note This patient required my direct & personal management of CC.: No Attestation - Physician/ ASHISH Attestation Patient care was provided by Advanced Practice Provider:: No The physician spent face to face time with patient:: Yes Advanced Practice Provider documentation review:: Supervising physician onsite and consulted in the evaluation and care of this patient. The physician did have a face to face encounter with the patient. This chart was documented by the indicated scribe, (Lori Thornton Scribe) and accurately reflects the services I performed and decisions made by me, Juan Candelario MD, as attested by the provider's signature.
[2018-12-06] MEDS ORDERED: HUMULIN R (PARKWAY) ONE (12:48)
[2018-12-06] MEDS ORDERED: POTASSIUM CHLORIDE 10% LIQUID PO PRN (14:15)
[2018-12-06] MEDS ORDERED: SODIUM BICARBONATE 8.4% 100 MEQ in STERILE WATER INJ. 500 ML IV PRN (14:15)
[2018-12-06] MEDS ORDERED: NS 1,000 ML IV SCH (14:15)
[2018-12-06] MEDS ORDERED: MAGNESIUM SULFATE 2 GM/S.W.I. 2 GM/50 ML IVPB IV PRN (14:15)
[2018-12-06] MEDS ORDERED: SODIUM PHOSPHATE 30 MMOL in D5W 250 ML IV PRN (14:15)
[2018-12-06] MEDS ORDERED: POTASSIUM CHLORIDE 40 MEQ/SWI 40 MEQ/100 ML IVPB IV PRN (14:15)
[2018-12-06] MEDS ORDERED: HUMULIN R 100 UNIT in NS 99 ML IV SCH (14:15)
[2018-12-06] MEDS ORDERED: POTASSIUM CHLORIDE 20 MEQ/SWI 20 MEQ/100 ML IVPB IV PRN (14:15)
[2018-12-06] MEDS ORDERED: D5 NS 1,000 ML IV SCH (14:15)
[2018-12-06] MEDS ORDERED: POTASSIUM CHLORIDE 20% LIQUID PO PRN (14:15)
[2018-12-06] MEDS ORDERED: D50W SYRINGE IV PRN (14:15)
[2018-12-06] MEDS ORDERED: ZOFRAN IV PRN (14:25)
[2018-12-06] MEDS: HUMULIN R 100 UNIT in NS 99 ML IV ONE ×2 (14:31→14:46)
--- NOTE | 2018-12-06 15:57 | HISTORY AND PHYSICAL ---
ADDENDUM: Patient seen and examined by myself. Full note dictated and discussed with nurse practitioner. Patient presented to the hospital with elevated blood sugars. She notes that her blood sugars have been elevated in the 300 to 500 range for the past several days. She has not increased her Levemir at home, but she notes that a few weeks ago she had a very low blood sugar. We will admit her to the hospital. IV insulin. We will get her blood sugars control, and attempt to re-educate her on insulin usage when and how to increase as well as decrease. cc: Rick Matamoros MD
[2018-12-06] MEDS: NS 1,000 ML IV SCH ×2 (16:22→22:27)
[2018-12-06 16:30] LABS: AGAP 14; BUN 10 mg/dL (8-22); CALCIUM 7.3 mg/dL (8.8-10.2); CHLORIDE 107 mmol/L (98-107); COSMO 274; CREATININE 0.4 mg/dL (0.5-0.9); ESTIMATED GFR > 60; GLUCOSE 151 mg/dL (70-104); MAGNESIUM 1.4 mg/dL (1.5-2.7); PHOSPHORUS 2.4 mg/dL (2.7-4.5); POTASSIUM 3.9 mmol/L (3.5-5.1); SODIUM 136 mmol/L (136-145); TCO2 15 mmol/L (25-35)
--- NOTE | 2018-12-06 16:53 | HISTORY AND PHYSICAL ---
CHIEF COMPLAINT: "My blood sugar is high." HISTORY OF PRESENT ILLNESS: This is a 38-year-old female with a history of insulin-dependent diabetes mellitus with frequent DKA, seizures, hypothyroid. She presents to the emergency room complaining of elevated blood sugars for the past 3 days. She denies any missed medications, any nausea/vomiting. She does note that she has had dry mouth, increased thirst, and increased urine output during this time. She stated that her home glucose meter could not read to even give her a number or high. Therefore, she presented for evaluation. Blood sugar in the emergency room was 428. She was found to be in DKA with a CO2 of 18, a gap of 23, with small acetone. She was given 2 L of fluid in the emergency room. She is being admitted to ICU on DKA protocol. The patient states that she is very sensitive to her insulin, stating that when she uses her Levemir at 15 units, blood sugars are high in the 300 to 500 range. If she increases it just 1 or 2 units, blood sugars drop very low. PAST MEDICAL HISTORY: Insulin-dependent diabetes mellitus, hypothyroidism, gastroesophageal reflux disease, prior TIA. PAST SURGICAL HISTORY: and LASIK surgery. SOCIAL HISTORY: She lives with family members. She smokes about a half pack a day. She denies alcohol or illicit drug use. ALLERGIES: No known drug allergies reported. HOME MEDICATIONS: A list will be obtained by the nursing staff. Once verified, we will review and restart it as appropriate. REVIEW OF SYSTEMS: Review of systems is discussed with patient with pertinent positives stated in the HPI. She denies any syncope, dizziness, any chest pain, palpitations, any shortness of breath, cough, fever, chills, any night sweats, recent weight loss or weight gain, any nausea/vomiting, constipation, black or bloody vomitus or stools, or any hematuria, dysuria. PHYSICAL EXAMINATION: GENERAL: This is a 38-year-old female, who is sitting up in the bed in the emergency room in no distress. VITAL SIGNS: Blood pressure is 131/80 with a heart rate of 79, respirations are 16, temperature is 98.8 degrees with room air saturations 98%. EYES: Pupils are equal, round, react to light. EOMs are intact. Sclerae are anicteric. HEENT: Head is normocephalic, atraumatic. Mucous membranes are moist. NECK: Supple with trachea midline. CARDIOVASCULAR: Regular rate and rhythm. S1 and S2 appreciated. She has no murmur. No lower extremity edema. Calves are nontender to palpation bilateral. Peripheral pulses palpable x4 extremities. PULMONARY: Breath sounds are clear with no increased work of breathing noted. Chest rises and falls symmetric with respiration. Chest wall is nontender to palpation. GASTROINTESTINAL: Soft, nontender, nondistended with bowel sounds in all 4 quadrants. GENITOURINARY: She has no CVA or suprapubic tenderness. NEUROLOGIC: She is alert oriented x3. SKIN: Warm and dry. LABORATORIES: WBC is 8.4 with hemoglobin 15.9, hematocrit 46.2, platelets of 299,000. Sodium is 132, potassium 4.2, CO2 is 18 with an anion gap of 23, BUN is 11, creatinine 0.6 with a glucose of 428. Acetone is small. ASSESSMENT AND PLAN: 1. Diabetic ketoacidosis. 2. Insulin-dependent diabetes mellitus with noncompliance. 3. Hypothyroidism. 4. Gastroesophageal reflux disease. 5. History of seizure disorder, on no medications. PLAN: The patient will be admitted to ICU. She will be placed on DKA protocol. We will check hemoglobin A1c as well as a TSH. We will identify her home medications and continue these as appropriate. For DVT prophylaxis, we will use SCDs and GI prophylaxis Prilosec. Further treatments pending hospital course. Dictated by ELIANA Gregory for Rick Matamoros MD cc: ELIANA Gregory MD
[2018-12-06 20:40] LABS: AGAP 10; BUN 10 mg/dL (8-22); CALCIUM 7.5 mg/dL (8.8-10.2); CHLORIDE 107 mmol/L (98-107); COSMO 278; CREATININE 0.3 mg/dL (0.5-0.9); ESTIMATED GFR > 60; GLUCOSE 158 mg/dL (70-104); MAGNESIUM 1.9 mg/dL (1.5-2.7); POTASSIUM 5.1 mmol/L (3.5-5.1); SODIUM 138 mmol/L (136-145); TCO2 21 mmol/L (25-35)
[2018-12-06] MEDS: HUMALOG (PARKWAY) SUBQ SCH (22:05)
[2018-12-07] MEDS: HUMALOG (PARKWAY) SUBQ SCH ×3 (02:03→06:53)
[2018-12-07 05:14] VITALS: BP 100/70
[2018-12-07] MEDS: NS 1,000 ML IV SCH (06:52)
[2018-12-07] MEDS ORDERED: PRILOSEC PO SCH (09:00)
== END 2018-12-07 06:00 | disposition left against medical advice (07) | DRG 639 ==
LOC: P.ED 11:50 → P.ICU 13:37
PROVIDERS: ATTEND Family Medicine
CPT/HCPCS: 80048; 80053; 82009; 82805; 82948; 83735; 84100; 85025; 85610; 85730; 99285; A9270; J1815; J3475; J3480; J7030; J7042; XXXXX